=== PATIENT | female | born 1990 | race African-American/Black ===

== ENCOUNTER 2017-02-03 17:00 | Emergency (ER) | payer SELFPAY ==
[~2017-02-03] VITALS: Ht 154.9 cm; Wt 54.4 kg
[2017-02-03] MEDS ORDERED: SODIUM CHLORIDE 0.9% 1,000 ML IVB ONE (17:23)
[2017-02-03] MEDS ORDERED: SODIUM CHLORIDE 0.9% 1,000 ML IV ONE (17:30)
[2017-02-03 18:50] LABS: Basophils # (auto) 0.1 uL; Eosinophils # (auto) 0.1 uL; Hemoglobin 10.6 g/dL (12.2-16.2); Lymphocytes # (auto) 4.1 uL; Red Cell Distribution Width 17.9 % (11.8-14.3)
[2017-02-03 18:53] LABS: Basophils % (auto) 0.6 % (0.0-2.0); Eosinophils % (auto) 0.8 % (0.0-7.0); Hematocrit 32.7 % (36.0-46.0); Lymphocytes % (auto) 33.1 % (10.0-50.0); Mean Corpuscular Hemoglobin 26.3 pg (28.0-32.0); Mean Corpuscular Hgb Conc. 32.4 g/dL (32.0-36.0); Mean Corpuscular Volume 81.2 fL (80.0-100.0); Monocytes # (auto) 0.6 uL; Monocytes % (auto) 4.9 % (0.0-12.0); Neutrophils # (auto) 7.4 uL; Neutrophils % (auto) 60.6 % (37.0-80.0); Nucleated Red Blood Cells % 0.1 %; Platelet Count (auto) 236 10^3/uL (140-450); Red Blood Cells 4.03 10^6/uL (4.0-5.20); White Blood Cell 12.3 10^3/uL (4.4-10.8)
[2017-02-03 19:05] LABS: Albumin 3.6 g/dL (3.4-5.0); BUN/Creatinine Ratio 5.6; Bilirubin, Total 0.2 mg/dL (0.2-1.0); Calcium 7.7 mg/dL (8.5-10.1); Total Protein 6.7 g/dL (6.4-8.2)
[2017-02-03 19:08] LABS: Blood Alcohol < 3.0 mg/dL (0-5)
[2017-02-03 19:18] LABS: Potassium 2.7 mmol/L (3.5-5.1)
[2017-02-03] MEDS: POTASSIUM CHL 20MEQ/50ML 50 ML IV SCH ×3 (19:20→23:32)
[2017-02-03] MEDS ORDERED: POTASSIUM CHL 20MEQ/50ML 50 ML IV ONE ×2 (19:20→20:51)
[2017-02-03 19:27] LABS: Acetaminophen < 2.0 ug/mL (10-30); Salicylate 4.4 mg/dL (2.8-20.0)
[2017-02-03] MEDS ORDERED: ONDANSETRON HCL 4 MG/2 ML VIAL ONE (19:32)
[2017-02-03] MEDS ORDERED: ONDANSETRON HCL 4 MG/2 ML VIAL IV ONE (20:30)
[2017-02-03 20:39] LABS: Alcohol, Urine < 3.0 mg/dL (0-5); Amphetamine Screen, Urine NEGATIVE (NEGATIVE); Barbiturate Scree,Urine NEGATIVE (NEGATIVE); Benzodiazephine Screen, Urine NEGATIVE (NEGATIVE); Cannabinoid Screen, Urine POSITIVE (NEGATIVE); Cocaine Screen, Urine NEGATIVE (NEGATIVE); Opiate Scree,Urine NEGATIVE (NEGATIVE); Phencyclidine Screen, Urine NEGATIVE (NEGATIVE)
[2017-02-04] MEDS ORDERED: ONDANSETRON HCL 4 MG/2 ML VIAL ONE ×2 (02:15→04:42)
[2017-02-04] MEDS ORDERED: ONDANSETRON HCL 4 MG/2 ML VIAL IV ONE ×2 (03:15→05:30)
[2017-02-04 03:54] VITALS: BP 101/68
== END 2017-02-04 05:22 | disposition home or self-care (01) ==
LOC: EDBD 17:00 → ER 17:10
DX: T50.7X1A Poisoning by analeptics and opioid receptor antagonists, accidental (unintentional), initial encounter (principal); E87.6 Hypokalemia; Y92.89 Other specified places as the place of occurrence of the external cause
CPT/HCPCS: 36415; 51702; 71010; 80053; 80307; 80320; 80329; 82550; 83735; 84132; 84702; 85025; 93005; 94761; 96361; 96365; 96366; 96375; 96376; 99285; J2405; J7030